=== PATIENT | male | born 1985 | race Caucasian/White ===

== ENCOUNTER 2024-01-28 12:03 | Emergency (ER) | payer SELFPAY ==
[2024-01-28 13:44] VITALS: BP 121/81; PULSE 94
== END 2024-01-28 13:30 | disposition home or self-care (01) ==
LOC: LB.ED 12:03
DX: K02.9 Dental caries, unspecified (principal); E66.9 Obesity, unspecified; Z68.42 Body mass index [BMI] 45.0-49.9, adult; Z86.16 Personal history of COVID-19
CPT/HCPCS: 99282; 99283

== ENCOUNTER 2024-10-20 14:06 | Emergency (ER) | payer BC | END 2024-10-20 14:28 | disposition home or self-care (01) | LOC: LB.ED 14:06 | DX: K04.7 Periapical abscess without sinus (principal); E66.9 Obesity, unspecified; Z86.16 Personal history of COVID-19; Z68.43 Body mass index [BMI] 50.0-59.9, adult | CPT/HCPCS: 99282; 99283 ==